=== PATIENT | female | born 1965 | race Caucasian/White ===

== ENCOUNTER 2016-08-06 20:27 | Emergency (ER) | payer OTHER ==
[~2016-08-06] VITALS: Ht 170.2 cm; Wt 102.1 kg
[2016-08-06 20:42] VITALS: BP 112/89
[2016-08-06] MEDS ORDERED: IV NORMAL SALINE 1,000ML 1,000 ML ONE (20:50)
[2016-08-06] MEDS ORDERED: LIDOCAINE 2%/EPI 1:100,000 20 ML VIAL. ONE (22:00)
[2016-08-06] MEDS ORDERED: methylPREDNISolone SOD SUCC PF 125 MG/2 ML VIAL. ONE (22:00)
[2016-08-06] MEDS ORDERED: ETOMIDATE 40 MG/20 ML VIAL. IV ONE ×2 (22:00→23:00)
[2016-08-06] MEDS ORDERED: EPINEPHrine 1 MG/10 ML DISP.SYRIN ONE ×2 (22:00→23:00)
[2016-08-06] MEDS ORDERED: IV NORMAL SALINE 1,000 ML BAG ONE (23:00)
[2016-08-06] MEDS ORDERED: SODIUM BICARBONATE 50 MEQ/50 ML VIAL. ONE (23:00)
[2016-08-06] MEDS ORDERED: ATROPINE 1 MG/10 ML DISP.SYRIN ONE (23:00)
[2016-08-06] MEDS ORDERED: SUCCINYLCHOLINE 200 MG/10 ML VIAL. ONE (23:00)
== END 2016-08-06 22:27 | disposition expired ==
LOC: ER 20:27
DX: T78.3XXA Angioneurotic edema, initial encounter (principal)
CPT/HCPCS: 31500; 99285; J0171; J0330; J0461; J2930; J7030